=== PATIENT | male | born 2000 | race African-American/Black ===

== ENCOUNTER 2025-07-05 06:03 | Emergency (ER) | payer SELFPAY ==
--- NOTE | 2025-07-05 06:43 | RAD REPORT ---
CT HEAD WITHOUT IV CONTRAST INDICATION: Trauma. COMPARISON: None TECHNIQUE: CT images of the head were obtained without contrast. Multiplanar reformats were provided. Dose lowering techniques such as automated exposure control, iterative reconstruction, and mA and/or kV adjustment for patient size was utilized for this examination. FINDINGS: PARENCHYMA: No acute arterial territory infarct. No acute intracranial hemorrhage. No mass effect or midline shift. VENTRICLES: Normal in size for patient's age. EXTRA-AXIAL: No focal collection. Patent basilar cisterns. ORBITS: Unremarkable. BONES: No acute finding. PARANASAL SINUSES/MASTOIDS/MIDDLE EARS: Clear. SOFT TISSUES: No acute findings. OTHER: None. IMPRESSION: No acute intracranial abnormality. Electronically signed by: Liseth Womack MD 07/05/2025 06:28 AM CDT Due to temporary technical issues with the [employer] reporting system, reports are being luis fernando d by the in-house radiologist without review as a courtesy to ensure prompt reporting the interpreting radiologist is fully responsible for the content of the report. Transcribed Date/Time: 07/05/2025 6:42 AM
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
[2025-07-05] MEDS ORDERED: IBUPROFEN 200 MG TAB PO ONE (07:54)
[2025-07-05] MEDS ORDERED: IBUPROFEN 400 MG TAB ONE (07:54)
[2025-07-05 08:26] VITALS: TEMP 97.5
[2025-07-05 08:28] VITALS: BP 102/66; O2SAT 100
== END 2025-07-05 07:59 | disposition home or self-care (01) ==
LOC: ER 06:03
DX: S09.90XA Unspecified injury of head, initial encounter (principal); R51.9 Headache, unspecified
CPT/HCPCS: 70450; 99283

== ENCOUNTER 2025-07-05 10:37 | Emergency (ER) | payer SELFPAY ==
--- NOTE | 2025-07-05 10:51 | ER ---
Nurse's Notes [facility] Name: Aubrey Griffin Age: 24 yrs Sex: Male : 2000 Arrival Date: 07/05/2025 Time: 10:37 Bed 18 Private MD: Diagnosis: Suicidal ideations Presentation: 07/05 10:47 Chief complaint: Patient states: HE IS HAVING SUICIDAL THOUGHT WITH A PLAN. PT REPORTS dd2 "I HAVE A BLADE IN MY POCKET". PT REPORTS BEING OUT OF HIS MEDICATIONS DEPAKOTE AND TRAZODONE. Coronavirus screen: At this time, the client does not indicate any symptoms associated with coronavirus-19. Ebola Screen: No symptoms or risks identified at this time. Initial Sepsis Screen: Does the patient meet any 2 criteria? No. Patient's initial sepsis screen is negative. Does the patient have a suspected source of infection? No. Patient's initial sepsis screen is negative. Risk Assessment: Do you want to hurt yourself or someone else? Patient reports no desire to harm self or others. Onset of symptoms is unknown. 10:47 Method Of Arrival: Ambulatory dd2 10:47 Acuity: ALLYSSA 2 dd2 Triage Assessment: 10:49 General: Appears in no apparent distress. unkempt, Behavior is appropriate for age, dd2 drowsy. Pain: Denies pain. Historical: - Allergies: 10:49 Amoxicillin; dd2 10:49 flu vaccine; dd2 10:49 PENICILLINS; dd2 - PMHx: 10:49 ADD; adhd; ocd; ODD; dd2 - PSHx: 10:49 None; dd2 - Immunization history:: Adult Immunizations not up to date, Flu vaccine is not up to date. - Infectious Disease History:: Denies. - Family history:: not pertinent. - Social history:: Smoking status: Reported history of juuling and/or vaping. - Hospitalizations: : No recent hospitalization is reported. Screenin:30 [facility] ED Fall Risk Assessment (Adult) History of falling in the last 3 months, jb4 including since admission No falls in past 3 months (0 pts) Confusion or Disorientation No (0 pts) Intoxicated or Sedated No (0 pts) Impaired Gait No (0 pts) Mobility Assist Device Used No (0 pt) Altered Elimination No (0 pt) Score/Fall Risk Level 0 - 2 = Low Risk Oriented to surroundings, Maintained a safe environment. Abuse screen: Denies threats or abuse. Nutritional screening: No deficits noted. Tuberculosis screening: No symptoms or risk factors identified. Assessment: 11:30 General: Appears in no apparent distress. comfortable, Behavior is calm, cooperative, jb4 appropriate for age, drowsy. Pain: Denies pain. Neuro: Level of Consciousness is awake, alert, obeys commands, Oriented to person, place, time, situation. Cardiovascular: Patient's skin is warm and dry. Respiratory: Airway is patent Respiratory effort is even, unlabored, Respiratory pattern is regular, symmetrical. Derm: Skin is intact, Skin is pink, warm \\T\\ dry. Musculoskeletal: Circulation, motion, and sensation intact. Range of motion: intact in all extremities. 12:16 Reassessment: Pt resting in bed with eyes closed, respirations are even and unlabored jb4 with no s/s of pain or distress noted. 13:15 Reassessment: Patient appears in no apparent distress at this time. No changes from jb4 previously documented assessment. Patient and/or family updated on plan of care and expected duration. Pain level reassessed. 14:19 Reassessment: Patient appears in no apparent distress at this time. No changes from jb4 previously documented assessment. Patient and/or family updated on plan of care and expected duration. Pain level reassessed. 19:00 General: Appears in no apparent distress. comfortable, Behavior is calm, cooperative. zm Pain: Denies pain. Neuro: No deficits noted. Level of Consciousness is awake, alert, obeys commands, Oriented to person, place, time, situation. Cardiovascular: No deficits noted. Capillary refill < 3 seconds in bilateral fingers Patient's skin is warm and dry. Respiratory: No deficits noted. Airway is patent Respiratory effort is even, unlabored, Respiratory pattern is regular, symmetrical. GI: No deficits noted. No signs and/or symptoms were reported involving the gastrointestinal system. : No deficits noted. No signs and/or symptoms were reported regarding the genitourinary system. EENT: No deficits noted. No signs and/or symptoms were reported regarding the EENT system. Derm: No deficits noted. No signs and/or symptoms reported regarding the dermatologic system. Skin is intact, is healthy with good turgor, Skin is pink, warm \\T\\ dry. Musculoskeletal: No deficits noted. No signs and/or symptoms reported regarding the musculoskeletal system. Circulation, motion, and sensation intact. Range of motion: intact in all extremities. 20:00 Reassessment: Patient appears in no apparent distress at this time. No changes from zm previously documented assessment. Patient and/or family updated on plan of care and expected duration. Pain level reassessed. Patient is alert, oriented x 3, equal unlabored respirations, skin warm/dry/pink. 21:00 Reassessment: Patient appears in no apparent distress at this time. No changes from zm previously documented assessment. Patient and/or family updated on plan of care and expected duration. Pain level reassessed. Patient is alert, oriented x 3, equal unlabored respirations, skin warm/dry/pink. 22:00 Reassessment: Patient appears in no apparent distress at this time. No changes from zm previously documented assessment. Patient and/or family updated on plan of care and expected duration. Pain level reassessed. Patient is alert, oriented x 3, equal unlabored respirations, skin warm/dry/pink. 23:00 Reassessment: Patient appears in no apparent distress at this time. No changes from zm previously documented assessment. Patient and/or family updated on plan of care and expected duration. Pain level reassessed. Patient is alert, oriented x 3, equal unlabored respirations, skin warm/dry/pink. Patient denies pain at this time. 07/06 00:00 Reassessment: Patient appears in no apparent distress at this time. No changes from zm previously documented assessment. Patient and/or family updated on plan of care and expected duration. Pain level reassessed. Patient is alert, oriented x 3, equal unlabored respirations, skin warm/dry/pink. Patient denies pain at this time. 01:00 Reassessment: Patient appears in no apparent distress at this time. resting with eyes zm closed, respirations even and unlabored. 02:00 Reassessment: Patient appears in no apparent distress at this time. No changes from zm previously documented assessment. 03:00 Reassessment: Patient appears in no apparent distress at this time. No changes from zm previously documented assessment. Respiratory: Respiratory effort is even, unlabored. 04:00 Reassessment: Patient appears in no apparent distress at this time. No changes from zm previously documented assessment. Reassessment: resting with eyes close, equal rise and fall of chest. Respiratory: Respiratory effort is even, unlabored. 05:00 Reassessment: Patient appears in no apparent distress at this time. No changes from zm previously documented assessment. 06:00 Reassessment: Patient appears in no apparent distress at this time. No changes from zm previously documented assessment. 07:05 Reassessment: Patient appears in no apparent distress at this time. Patient and/or db family updated on plan of care and expected duration. Pain level reassessed. Patient is alert, oriented x 3, equal unlabored respirations, skin warm/dry/pink. 08:00 Reassessment: Patient appears in no apparent distress at this time. Patient and/or db family updated on plan of care and expected duration. Pain level reassessed. Patient is alert, oriented x 3, equal unlabored respirations, skin warm/dry/pink. 12:00 Reassessment: Patient appears in no apparent distress at this time. Patient and/or db family updated on plan of care and expected duration. Pain level reassessed. Patient is alert, oriented x 3, equal unlabored respirations, skin warm/dry/pink. 15:21 Reassessment: Patient appears in no apparent distress at this time. Patient and/or db family updated on plan of care and expected duration. Pain level reassessed. Patient is alert, oriented x 3, equal unlabored respirations, skin warm/dry/pink. PT SITTING UP EATING. 16:00 Reassessment: PT USING PHONE. db 16:38 Reassessment: Patient appears in no apparent distress at this time. Patient and/or db family updated on plan of care and expected duration. Pain level reassessed. Patient is alert, oriented x 3, equal unlabored respirations, skin warm/dry/pink. [facility] IS AT PATIENT BEDSIDE SPEAKING WITH PT. 17:30 Reassessment: Patient appears in no apparent distress at this time. Patient and/or db family updated on plan of care and expected duration. Pain level reassessed. Patient is alert, oriented x 3, equal unlabored respirations, skin warm/dry/pink. PT EATING DINNER TRAY. 18:21 Reassessment: Patient appears in no apparent distress at this time. Patient and/or db family updated on plan of care and expected duration. Pain level reassessed. Patient is alert, oriented x 3, equal unlabored respirations, skin warm/dry/pink. PT SITTING UP TALKING ON THE PHONE. 19:00 Reassessment: Patient appears in no apparent distress at this time. Patient and/or cp4 family updated on plan of care and expected duration. Pain level reassessed. Patient is alert, oriented x 3, equal unlabored respirations, skin warm/dry/pink. General:. 19:00 Reassessment: Patient being disruptive. Leaving the room for no reason, messing with cp4 the stretcher and closing the curtain. Charge nurse notified and spoke with patient. 20:00 Reassessment: Patient appears in no apparent distress at this time. Patient and/or cp4 family updated on plan of care and expected duration. Pain level reassessed. Patient is alert, oriented x 3, equal unlabored respirations, skin warm/dry/pink. 21:00 Reassessment: Patient appears in no apparent distress at this time. Patient and/or cp4 family updated on plan of care and expected duration. Pain level reassessed. Patient is alert, oriented x 3, equal unlabored respirations, skin warm/dry/pink. 22:00 Reassessment: Patient appears in no apparent distress at this time. Patient and/or cp4 family updated on plan of care and expected duration. Pain level reassessed. Patient is alert, oriented x 3, equal unlabored respirations, skin warm/dry/pink. 23:00 Reassessment: Patient appears in no apparent distress at this time. Patient and/or cp4 family updated on plan of care and expected duration. Pain level reassessed. Patient is alert, oriented x 3, equal unlabored respirations, skin warm/dry/pink. 07/07 00:00 Reassessment: Patient appears in no apparent distress at this time. Patient and/or cp4 family updated on plan of care and expected duration. Pain level reassessed. Patient is alert, oriented x 3, equal unlabored respirations, skin warm/dry/pink. 01:00 Reassessment: Patient appears in no apparent distress at this time. Patient and/or cp4 family updated on plan of care and expected duration. Pain level reassessed. Patient is alert, oriented x 3, equal unlabored respirations, skin warm/dry/pink. 02:00 Reassessment: Patient appears in no apparent distress at this time. Patient and/or cp4 family updated on plan of care and expected duration. Pain level reassessed. Patient is alert, oriented x 3, equal unlabored respirations, skin warm/dry/pink. 03:00 General: Appears in no apparent distress. comfortable, Behavior is calm, cooperative, kd3 appropriate for age. General: Pt is resting in the stretcher, respirations are even and unlabored, skin is warm and dry, sitter is present. pt needs are met and the patient has no further requests at this time. . Neuro: Level of Consciousness is awake, alert, obeys commands, Oriented to person, place, time, situation. Cardiovascular: No deficits noted. Capillary refill < 3 seconds Patient's skin is warm and dry. Respiratory: Airway is patent Respiratory effort is even, unlabored, Respiratory pattern is regular, symmetrical. GI: No signs and/or symptoms were reported involving the gastrointestinal system. : No signs and/or symptoms were reported regarding the genitourinary system. 04:00 Reassessment: Patient and/or family updated on plan of care and expected duration. Pain kd3 level reassessed. Patient is alert, oriented x 3, equal unlabored respirations, skin warm/dry/pink. Sitter remains with the patient Patient denies pain at this time. General: Appears in no apparent distress. comfortable, Behavior is calm, cooperative. 05:00 Reassessment: No changes from previously documented assessment. Patient and/or family kd3 updated on plan of care and expected duration. Pain level reassessed. Patient is alert, oriented x 3, equal unlabored respirations, skin warm/dry/pink. 06:00 Reassessment: No changes from previously documented assessment. Patient and/or family kd3 updated on plan of care and expected duration. Pain level reassessed. Patient is alert, oriented x 3, equal unlabored respirations, skin warm/dry/pink. General:. 07:07 Reassessment: Patient and/or family updated on plan of care and expected duration. Pain kd3 level reassessed. Patient is alert, oriented x 3, equal unlabored respirations, skin warm/dry/pink. General: General: report given to MIRTA Moreno. 08:10 General: Appears in no apparent distress. comfortable, Behavior is calm. Neuro: Level iw of Consciousness is awake, alert, obeys commands, Oriented to person, place, time, situation. Cardiovascular: Patient's skin is warm and dry. Respiratory: Respiratory effort is even, unlabored, Respiratory pattern is regular, symmetrical. Derm: Skin is intact, is healthy with good turgor. Musculoskeletal: Range of motion: intact in all extremities. 08:11 General: pt given breakfast tray . iw 09:00 Reassessment: Patient appears in no apparent distress at this time. Patient and/or zm family updated on plan of care and expected duration. Pain level reassessed. Patient is alert, oriented x 3, equal unlabored respirations, skin warm/dry/pink. Patient denies pain at this time. 09:37 Reassessment: pt sitting up eating breakfast tray. iw 11:26 Reassessment: Patient appears in no apparent distress at this time. Patient and/or iw family updated on plan of care and expected duration. Pain level reassessed. Patient is alert, oriented x 3, equal unlabored respirations, skin warm/dry/pink. pt eating a sandwich before transfer. Psych: 07/05 11:30 [place] Suicide Severity Screening: In the past month, have you wished you were jb4 or wished you could go to sleep and not wake up? Patient responds "yes." Based off the client's responses additional C-SSRS screening is required. "In the past month, have you actually had any thoughts of killing yourself?" Patient responds "yes." Based off the client's response additional [place] suicide severity screening questions to be further documented on paper forms. "In your lifetime, have you ever done anything, started to do anything, or prepared to do anything to end your life?" Patient responds "yes." Patient reports suicidal intent within 3 past months. Subjective: Patient's mood is hopeless, Delusions are denied, Hallucinations are denied Having thoughts of suicide. Plan for suicide is " I have a knife and I want to slit my wrist and throat". Objective: Patient is cooperative, Speech is normal, Affect is flat. Interventions: Removed personal items and placed in bag. Safety Checks: Personal items have been removed. Door is open. No visitors are present at this time. Patient uses methamphetamines Last use was 1 days ago. Commitment: Patient will be a voluntary commitment. 19:00 Safety Checks: Personal items have been removed. Door is open. No visitors are present zm at this time. 19:00 [place] Suicide Severity Screening: In the past month, have you wished you were zm or wished you could go to sleep and not wake up? Patient responds "yes." Based off the client's responses additional C-SSRS screening is required. "In the past month, have you actually had any thoughts of killing yourself?" Patient responds "yes." Based off the client's response additional [place] suicide severity screening questions to be further documented on paper forms. "In your lifetime, have you ever done anything, started to do anything, or prepared to do anything to end your life?" Patient responds "no.". 20:00 Safety Checks: Personal items have been removed. Door is open. No visitors are present zm at this time. 21:00 Safety Checks: Personal items have been removed. Door is open. No visitors are present zm at this time. 22:00 Safety Checks: Personal items have been removed. Door is open. No visitors are present zm at this time. 23:00 Safety Checks: Personal items have been removed. Door is open. No visitors are present zm at this time. 07/06 00:00 Safety Checks: Personal items have been removed. Door is open. No visitors are present zm at this time. 01:00 Safety Checks: Personal items have been removed. Door is open. No visitors are present zm at this time. 02:00 Safety Checks: Personal items have been removed. Door is open. No visitors are present zm at this time. 03:00 Safety Checks: Personal items have been removed. Door is open. No visitors are present zm at this time. 04:00 Safety Checks: Personal items have been removed. Door is open. No visitors are present zm at this time. 05:00 Safety Checks: Personal items have been removed. Door is open. No visitors are present zm at this time. 06:00 Safety Checks: Personal items have been removed. Door is open. No visitors are present zm at this time. 07/07 07:00 Safety Checks: Personal items have been removed. Door is open. No visitors are present zm at this time. 08:00 Safety Checks: Personal items have been removed. Door is open. No visitors are present zm at this time. Vital Signs: 07/05 10:47 BP 136 / 76; Pulse 82; Resp 16; Temp 98.2; Pulse Ox 99% on R/A; Weight 99.79 kg; Height dd2 5 ft. 8 in. ; 17:35 BP 110 / 56; Pulse 78; Resp 14; Temp 98.1; Pulse Ox 96% ; Pain 3/10; pm7 19:11 BP 123 / 57; Pulse 60; Resp 16; Temp 97.3; Pulse Ox 100% on R/A; Pain 0/10; zm 07/06 07:44 BP 115 / 76; Pulse 80; Resp 16; Temp 98; Pulse Ox 100% on R/A; Pain 0/10; em1 07/07 09:37 BP 103 / 60; Pulse 58; Resp 16; Temp 98; Pulse Ox 100% on R/A; Pain 0/10; iw 11:25 BP 101 / 56; Pulse 55; Resp 16; Pulse Ox 100% on R/A; iw 07/05 10:47 Body Mass Index 33.45 (99.79 kg, 172.72 cm) dd2 17:35 Pain Scale: Adult pm7 19:11 Pain Scale: Adult zm 07/06 07:44 Pain Scale: Adult em1 07/07 09:37 Pain Scale: Adult iw Rafia Coma Score: 07/05 19:11 Eye Response: spontaneous(4). Motor Response: obeys commands(6). Verbal Response: zm oriented(5). Total: 15. ED Course: 10:39 Patient arrived in ED. ts1 10:40 Juan Dugan MD is Attending Physician. rn 10:49 Triage completed. dd2 10:49 Arm band placed on left wrist. dd2 11:30 Patient has correct armband on for positive identification. Bed in low position. Call jb4 light in reach. Side rails up X 1. Provided Education on: plan of care. 11:30 No provider procedures requiring assistance completed. jb4 11:41 Missed attempt(s): 20 gauge in right forearm. Bleeding controlled, band aid applied, pm7 catheter tip intact. 11:41 Initial lab(s) drawn, by ct, sent to lab. pm7 12:16 Gian Laguna, MIRTA is Primary Nurse. jb4 17:55 Noise minimized. Lights dimmed. Diet tray given. pm7 19:00 Safety Checks: Personal items have been removed. The door is open or patient has been zm placed in a hallway bed/chair. There are no family/friend visitors at this time Sitter present at this time. 19:00 Report received from MIRTA Euceda. zm 19:00 Patient did not have IV access during this emergency room visit. bm8 20:00 Safety Checks: Personal items have been removed. The door is open or patient has been bm8 placed in a hallway bed/chair. There are no family/friend visitors at this time Sitter present at this time. 21:00 Safety Checks: Personal items have been removed. The door is open or patient has been zm placed in a hallway bed/chair. There are no family/friend visitors at this time Sitter present at this time. 22:00 Safety Checks: Personal items have been removed. The door is open or patient has been zm placed in a hallway bed/chair. There are no family/friend visitors at this time Sitter present at this time. 23:00 Safety Checks: Personal items have been removed. The door is open or patient has been zm placed in a hallway bed/chair. There are no family/friend visitors at this time Sitter present at this time. 07/06 00:00 Safety Checks: Personal items have been removed. The door is open or patient has been zm placed in a hallway bed/chair. There are no family/friend visitors at this time Sitter present at this time. 01:00 Safety Checks: Personal items have been removed. The door is open or patient has been zm placed in a hallway bed/chair. There are no family/friend visitors at this time Sitter present at this time. 02:00 Safety Checks: Personal items have been removed. The door is open or patient has been zm placed in a hallway bed/chair. There are no family/friend visitors at this time Sitter present at this time. 03:00 Safety Checks: Personal items have been removed. The door is open or patient has been zm placed in a hallway bed/chair. There are no family/friend visitors at this time Sitter present at this time. 04:00 Safety Checks: Personal items have been removed. The door is open or patient has been zm placed in a hallway bed/chair. There are no family/friend visitors at this time Sitter present at this time. 05:00 Safety Checks: Personal items have been removed. The door is open or patient has been zm placed in a hallway bed/chair. There are no family/friend visitors at this time Sitter present at this time. 06:00 Safety Checks: Personal items have been removed. The door is open or patient has been zm placed in a hallway bed/chair. There are no family/friend visitors at this time Sitter present at this time. 15:13 called the [facility] Crisis Line to page the consulting technical manager screener for an evaluation!!. eb 07/07 07:00 Safety Checks: Personal items have been removed. The door is open or patient has been zm placed in a hallway bed/chair. There are no family/friend visitors at this time Sitter present at this time. 08:11 Primary Nurse role handed off by Gian Laguna, MIRTA iw 08:11 Kristyn Soni, RN is Primary Nurse. iw 09:[address] [facility] as requested by Adele from [facility]. bd 09:50 pt accepted in transfer to [facility] by dr Olvera admin approval given by Edwardo Reid. Administered Medications: No medications were administered Medication: 07/05 11:30 VIS not applicable for this client. jb4 Outcome: 10:50 ER care complete, transfer ordered by . rn 07/07 11:26 Transferred by ground EMS [facility], to [facility] . Transfer form completed. X-rays iw sent w/ patient. Condition: good Discharge instructions given to patient, Instructed on the need for transfer, Demonstrated understanding of instructions, 11:28 Patient left the ED. iw Signatures: Jelena aDlal Irene, RN RN iw Juan Dugan MD MD rn Martinez, Eric em1 Gian Laguna, RN RN jb4 Crystal Quick Kyli RN RN kd3 Tiffanie Banks RN MIRTA zm Ashley Joyce, RN RN db Carlotta Otero PAS PAS ts1 Stefania Smith cp4 Paul Arreola RN RN bm8 JEREMY PEDRO, MIRTA RN dd2 Dasia Peck pm7 Corrections: (The following items were deleted from the chart) 07/05 11:47 07/04 23:30 [facility] ED Fall Risk Assessment (Adult) History of falling in the last 3 jb4 months, including since admission No falls in past 3 months (0 pts) Confusion or Disorientation No (0 pts) Intoxicated or Sedated No (0 pts) Impaired Gait No (0 pts) Mobility Assist Device Used No (0 pt) Altered Elimination No (0 pt) Score/Fall Risk Level 0 - 2 = Low Risk Oriented to surroundings, Maintained a safe environment, [facility] [id number] 07/04 23:30 Abuse screen: Denies threats or abuse. [place] [id number] 07/05 23:30 Nutritional screening: No deficits noted. [place] [id number] 07/05 23:30 Tuberculosis screening: No symptoms or risk factors identified. [place] [id number] 07/05 11:48 07/04 23:30 General: Appears in no apparent distress. comfortable, Behavior is calm, jb4 cooperative, appropriate for age, drowsy, [facility] 07/05 11:48 07/04 23:30 Pain: Denies pain. [place] [id number] 07/05 23:30 Neuro: Level of Consciousness is awake, alert, obeys commands, Oriented to [facility] person, place, time, situation, [facility] 07/0548 07/04 23:30 Cardiovascular: Patient's skin is warm and dry. [place] [id number] 07/05 23:30 Respiratory: Airway is patent Respiratory effort is even, unlabored, [facility] Respiratory pattern is regular, symmetrical, [facility] 07/0548 07/04 23:30 Derm: Skin is intact, Skin is pink, warm \\T\\ dry. [place] [id number] 07/05 23:30 Musculoskeletal: Circulation, motion, and sensation intact. Range of [facility] motion: intact in all extremities, [facility] 07/05 23:30 VIS not applicable for this client. [place] [id number] 07/06 03:16 01:00 Reassessment: Patient appears in no apparent distress at this time. No changes zm from previously documented assessment. resting with eyes closed, respirations even and unlabored zm 03:17 03:16 Reassessment: Patient appears in no apparent distress at this time. No changes zm from previously documented assessment. zm 03:18 03:00 Reassessment: Patient appears in no apparent distress at this time. No changes zm from previously documented assessment. zm 07/07 08:11 08:10 Musculoskeletal: Range of motion: intact in all extremities, iw iw 11:00 10:11 pt accepted in transfer to [facility] by dr Olvera admin approval given by donny hines
--- NOTE | 2025-07-05 10:51 | EDPHYS ---
Physician Documentation [facility] Name: Aubrey Griffin Age: 24 yrs Sex: Male : 2000 Arrival Date: 07/05/2025 Time: 10:37 Bed 18 Private MD: ED Physician Juan Dugan HPI: 07/05 10:48 This 24 yrs old Black Male presents to ER via Unassigned with complaints of Suicidal rn Ideation. 10:48 Patient reports suicidal ideations, has been ongoing for at least a month, has previous rn attempt with cutting himself. States his plan is to cut himself with the knife he has in his right pocket.. Historical: - Allergies: 10:49 Amoxicillin; dd2 10:49 flu vaccine; dd2 10:49 PENICILLINS; dd2 - PMHx: 10:49 ADD; adhd; ocd; ODD; dd2 - PSHx: 10:49 None; dd2 - Immunization history:: Adult Immunizations not up to date, Flu vaccine is not up to date. - Infectious Disease History:: Denies. - Family history:: not pertinent. - Social history:: Smoking status: Reported history of juuling and/or vaping. - Hospitalizations: : No recent hospitalization is reported. ROS: 10:48 Constitutional: Negative for fever, chills, and weight loss, Cardiovascular: Negative rn for chest pain, palpitations, and edema, Respiratory: Negative for shortness of breath, cough, wheezing, and pleuritic chest pain, Neuro: Patient reports mild headache, was seen last night for head injury. Exam: 10:48 Constitutional: This is a well developed, well nourished patient who is awake, alert, rn and in no acute distress. Ambulatory to room without assistance or difficulty. Not very cooperative with history or exam. Cardiovascular: Regular rate and rhythm . No pulse deficits. Respiratory: Speaking full sentences, unlabored. Neuro: Awake and alert, GCS 15 12:27 ECG was reviewed by the Attending Physician. rn Vital Signs: 10:47 BP 136 / 76; Pulse 82; Resp 16; Temp 98.2; Pulse Ox 99% on R/A; Weight 99.79 kg; Height dd2 5 ft. 8 in. ; 17:35 BP 110 / 56; Pulse 78; Resp 14; Temp 98.1; Pulse Ox 96% ; Pain 3/10; pm7 19:11 BP 123 / 57; Pulse 60; Resp 16; Temp 97.3; Pulse Ox 100% on R/A; Pain 0/10; zm 07/06 07:44 BP 115 / 76; Pulse 80; Resp 16; Temp 98; Pulse Ox 100% on R/A; Pain 0/10; em1 07/07 09:37 BP 103 / 60; Pulse 58; Resp 16; Temp 98; Pulse Ox 100% on R/A; Pain 0/10; iw 11:25 BP 101 / 56; Pulse 55; Resp 16; Pulse Ox 100% on R/A; iw 07/05 10:47 Body Mass Index 33.45 (99.79 kg, 172.72 cm) dd2 17:35 Pain Scale: Adult pm7 19:11 Pain Scale: Adult zm 07/06 07:44 Pain Scale: Adult em1 07/07 09:37 Pain Scale: Adult iw Rafia Coma Score: 07/05 19:11 Eye Response: spontaneous(4). Motor Response: obeys commands(6). Verbal Response: zm oriented(5). Total: 15. MDM: 10:40 Medical Screening Exam initiated rn 10:49 Differential diagnosis: Suicidal ideation, medication noncompliance. Data reviewed: rn vital signs, nurses notes, and as a result, I will admit patient. Consideration of Admission/Observation Patient was admitted/placed on observation. Escalation of care including admission/observation considered. Care significantly affected by the following chronic conditions: Depression, suicidal ideations. Counseling: I had a detailed discussion with the patient and/or guardian regarding the historical points, exam findings, and any diagnostic results supporting the discharge/admit diagnosis, lab results, the need to transfer to another facility. 07/06 19:01 ED course: Patient still pending psychiatric transfer for suicidal ideations. Has not rn required sedation or medication but is starting to get slightly upset and agitated with staff. Still redirectable and does not require chemical or restraints.. 07/07 09:52 ED course: Pt accepted for transfer to [facility]. rn 07/05 10:48 Order name: Acetaminophen; Complete Time: 15:23 rn 07/05 10:48 Order name: Basic Metabolic Panel; Complete Time: 15:23 rn 07/05 10:48 Order name: CBC with Diff; Complete Time: 15:23 rn 07/05 10:48 Order name: ETOH Level; Complete Time: 15:23 rn 07/05 10:48 Order name: Hepatic Function; Complete Time: 15:23 rn 07/05 10:48 Order name: PT-INR; Complete Time: 15:23 rn 07/05 10:48 Order name: Ptt, Activated; Complete Time: 15:23 rn 07/05 10:48 Order name: Salicylate; Complete Time: 15: rn 07/05 10:48 Order name: Urine Drug Screen; Complete Time: 18:02 rn 07/05 10:48 Order name: EKG; Complete Time: 10:48 rn 07/05 10:48 Order name: EKG - Nurse/Tech; Complete Time: 12:13 rn 07/05 10:48 Order name: IV Saline Lock; Complete Time: 11:51 rn 07/05 10:48 Order name: Labs collected and sent; Complete Time: 11:41 rn 07/05 10:48 Order name: Suicide Precautions; Complete Time: 11 rn 07/05 10:48 Order name: Suicide Screening ([place]); Complete Time: 11:51 rn EC/11 12:27 Rate is 73 beats/min. Rhythm is regular. QRS [place] is Normal. NC interval is normal. QRS rn interval is normal. QT interval is normal. No Q waves. T waves are Normal. No ST changes noted. Clinical impression: Normal ECG. Interpreted by me. Reviewed by me. Administered Medications: No medications were administered Disposition Summary: 07/05/25 10:50 Transfer Ordered Notes: Transfer Location: [facility] rn Reason: Higher level of care rn Condition: Stable rn Problem: an ongoing problem rn Symptoms: are unchanged rn Accepting Physician: (07/07/25 11:28) víctor Diagnosis - Suicidal ideations rn Forms: - Medication Reconciliation Form rn - SBAR form rn Signatures: Dispatcher [employer] Kristyn Le RN Juan Murry MD MD rn DAVIS, DIANA RN DALJIT dd2 Corrections: (The following items were deleted from the chart) 07/07 09:56 09:52 ED course: Pt accepted for transfer . rn rn 11:28 07/05 10:50 Dr. daljit renee
[2025-07-05 11:43] LABS: Absolute Lymphocytes (CBC) 1.9 K/uL (0.7-4.9); Hematocrit 42.2 % (39.6-49.0); Hemoglobin 13.5 g/dL (13.6-17.9); MCH 23.8 pg (27.0-35.0); MCHC 32.0 g/dL (32.0-36.0); MCV 74.3 fL (80-100); MPV 9.1 fL (7.6-11.3); Nucleated RBC Absolute Count 0.0 (0-0); Nucleated Red Blood Cells % 0.1 % (0-0); RBC Red Blood Cell Count 5.68 M/uL (4.33-5.43); White Blood Count 6.20 thou/uL (4.3-10.9)
[2025-07-05 11:53] LABS: PT Prothrombin Time 10.4 SECONDS (10-13.0); PTT, Activated Partial Thromb 30.8 SECONDS (27.2-37.4); Protime INR 0.92
[2025-07-05 12:14] LABS: ALT/SGPT 30 U/L (16-61); AST/SGOT 12 U/L (15-37); Albumin 2.9 g/dL (3.4-5.0); Albumin/Globulin Ratio 0.9 (1.1-1.8); Alkaline Phosphatase 62 U/L (45-117); Anion Gap 7.8 mEq/L (5.0-15.0); BUN Blood Urea Nitrogen 9 mg/dL (7-18); Globulin 3.1 g/dL (2.3-3.5); Glucose Level 104 mg/dL (74-106); Potassium 3.8 mEq/L (3.5-5.1)
[2025-07-05 12:15] LABS: Bilirubin Indirect, Calculated 0.0 mg/dL (0.2-0.8)
[2025-07-05 17:45] LABS: METHAMPHETAM NEGATIVE (NEGATIVE); THC Cannibis POSITIVE (NEGATIVE)
[2025-07-07 13:14] VITALS: O2SAT 100
[2025-07-07 13:15] VITALS: TEMP 98
[2025-07-07 13:19] VITALS: BP 101/56
== END 2025-07-07 11:28 ==
LOC: ER 10:37
DX: R45.851 Suicidal ideations (principal); Z88.0 Allergy status to penicillin; Z88.1 Allergy status to other antibiotic agents; F90.2 Attention-deficit hyperactivity disorder, combined type; F91.3 Oppositional defiant disorder; F42.9 Obsessive-compulsive disorder, unspecified; F17.290 Nicotine dependence, other tobacco product, uncomplicated
CPT/HCPCS: 36415; 80048; 80076; 80143; 80179; 80307; 82077; 85025; 85610; 85730; 93005; 99285